=== PATIENT | male | born 1950 | race African-American/Black ===

== ENCOUNTER 2016-10-10 08:09 | Emergency (ER) | payer OTHER ==
[~2016-10-10] VITALS: Ht 167.6 cm; Wt 76.1 kg
[~2016-10-10 08:09] MED LIST: ADALAT CC90 MG PO; HYDRALAZINE HCL50 MG PO; LABETALOL HCL300 MG PO; LO-DOSE ASPIRIN81 M2 PO; MULTI-DAY VITA1 EACH PO; NEPHRO-VITE,1 TABLET PO; NEPRO CARB STE237 ML PO; NEURONTIN100 MG PO; PHOSLYRA667 MG/5 M PO
[2016-10-10 08:59] LABS: HEMATOCRIT 32.7 % (38.0-50.0); MCH 32.1 PG (29.0-34.0); MCHC 32.1 G/DL (30.0-36.0); MEAN PLAT.VOLUME 9.8 uM^3 (9.0-12.4); PLATELET COUNT 141 K/uL (156-360); RBC DIS.WIDTH-CV 15.4 % (11.8-14.6); RBC DIS.WIDTH-SD 55.8 % (39-53); RED BLOOD COUNT 3.27 M/uL (4.00-5.50); WHITE BLOOD COUNT 3.4 K/uL (4.1-10.2)
[2016-10-10 09:11] LABS: CHLORIDE 95 mEq/L (99-109); POTASSIUM 3.9 mEq/L (3.7-5.4); SODIUM 139 mEq/L (136-147)
[2016-10-10 09:12] LABS: MAGNESIUM 2.1 mg/dL (1.3-2.7)
[2016-10-10 09:13] LABS: EOSINOPHIL (%) 3.8 % (0-5); EOSINOPHIL COUNT 0.1 K/uL (0-0.3); GLUCOSE 111 mg/dL (70-99); IMMATURE GRANULOCYTE (%) 0.6 % (0.0-0.7); INSTRUMENT ABS NEUTROPHIL CT 1.7 K/uL; LYMPHOCYTE COUNT 1.1 K/uL (1.0-2.8); MONOCYTE (%) 12.9 % (3-12); MONOCYTE COUNT 0.4 K/uL (0-0.8); NEUTROPHIL (%) 50.4 % (45-76); NEUTROPHIL COUNT 1.7 K/uL (1.8-6.4)
[2016-10-10 09:15] LABS: ANION GAP 15 MEQ/L (2-14)
[2016-10-10 09:17] LABS: GFR ESTIMATE (CALCULATED) 8 mL/min/
[2016-10-10 09:18] LABS: UREA NITROGEN (BUN) 41 mg/dL (9-23)
[2016-10-10 09:21] LABS: TROP-I INTERPRETATION NEGATIVE; TROPONIN-I 0.07 ng/mL (0.0-0.30)
[2016-10-10 10:00] VITALS: BP 150/76
== END 2016-10-10 10:07 ==
LOC: EME → EDBD 08:09 → EME 08:09
PROVIDERS: Personal Emergency Response Attendant
DX: R55 Syncope and collapse (principal); I12.0 Hypertensive chronic kidney disease with stage 5 chronic kidney disease or end stage renal disease; N18.6 End stage renal disease; Z99.2 Dependence on renal dialysis; B19.20 Unspecified viral hepatitis C without hepatic coma; F32.9 Major depressive disorder, single episode, unspecified
CPT/HCPCS: 71010; 80048; 83735; 84100; 84484; 85025; 93005; 99281; 99284

== ENCOUNTER 2017-03-25 21:17 | Emergency (ER) | payer OTHER ==
[~2017-03-25] VITALS: Ht 167.6 cm; Wt 72.1 kg
[2017-03-25 21:47] LABS: EOSINOPHIL (%) 1.8 % (0-5); EOSINOPHIL COUNT 0.1 K/uL (0-0.3); HEMATOCRIT 33.4 % (38.0-50.0); IMMATURE GRANULOCYTE (%) 0.3 % (0.0-0.7); INSTRUMENT ABS NEUTROPHIL CT 2.3 K/uL; LYMPHOCYTE COUNT 1.2 K/uL (1.0-2.8); MCH 30.6 PG (29.0-34.0); MCHC 32.3 G/DL (30.0-36.0); MCV 94.6 FL (86-99); MEAN PLAT.VOLUME 9.1 uM^3 (9.0-12.4); MONOCYTE (%) 11.6 % (3-12); MONOCYTE COUNT 0.5 K/uL (0-0.8); NEUTROPHIL (%) 56.8 % (45-76); NEUTROPHIL COUNT 2.3 K/uL (1.8-6.4); PLATELET COUNT 125 K/uL (156-360); RBC DIS.WIDTH-CV 14.2 % (11.8-14.6); RBC DIS.WIDTH-SD 49.5 % (39-53); RED BLOOD COUNT 3.53 M/uL (4.00-5.50)
[2017-03-25 21:59] LABS: CHLORIDE 96 mEq/L (99-109); POTASSIUM 5.5 mEq/L (3.7-5.4); SODIUM 139 mEq/L (136-147)
[2017-03-25 22:01] LABS: GLUCOSE 99 mg/dL (70-99)
[2017-03-25 22:02] LABS: ANION GAP 14 MEQ/L (2-14)
[2017-03-25 22:03] LABS: TOTAL BILIRUBIN 0.6 mg/dL (0.0-1.0)
[2017-03-25 22:04] LABS: ALKALINE PHOSPHATASE 122 IU/L (3-129)
[2017-03-25 22:05] LABS: GFR ESTIMATE (CALCULATED) 8 mL/min/ (58.99-99999)
[2017-03-25 22:06] LABS: UREA NITROGEN (BUN) 44 mg/dL (9-23)
[2017-03-25 22:08] LABS: CREATINE KINASE 343 IU/L (1-294); LIPASE 63 U/L (1.0-51.0)
[2017-03-25 22:09] LABS: TROP-I INTERPRETATION NEGATIVE; TROPONIN-I 0.04 ng/mL (0.0-0.30)
[2017-03-26 02:15] VITALS: BP 184/96
== END 2017-03-26 03:02 | disposition short-term general hospital (02) ==
LOC: EME → EDBD 21:17 → EME 21:17
PROVIDERS: Emergency Medicine
DX: R07.9 Chest pain, unspecified (principal); R03.0 Elevated blood-pressure reading, without diagnosis of hypertension; B19.20 Unspecified viral hepatitis C without hepatic coma; I12.0 Hypertensive chronic kidney disease with stage 5 chronic kidney disease or end stage renal disease; N18.6 End stage renal disease; I77.819 Aortic ectasia, unspecified site; I70.0 Atherosclerosis of aorta; J98.11 Atelectasis; N28.1 Cyst of kidney, acquired; F32.9 Major depressive disorder, single episode, unspecified; Z99.2 Dependence on renal dialysis; Z88.8 Allergy status to other drugs, medicaments and biological substances
CPT/HCPCS: 70450; 71010; 71275; 74174; 80053; 82550; 83690; 84484; 85025; 93005; 99281; 99284; J2270